=== PATIENT | female | born 1985 | race Hispanic/Latino ===

== ENCOUNTER 2017-06-30 07:41 | Day surgery (SDC) | payer MEDICARE, MEDICAID ==
[~2017-06-30] VITALS: Ht 157.5 cm; Wt 102.1 kg
[~2017-06-30 07:41] MED LIST: AMOXICILLIN; AMOXICILLIN500 M1 OR; AMOXICILLIN500 MG OR; AMOXICILLIN500 MG PO; ANAPROX DS550 MG OR; ANTIVERT OR; ATIVAN0.5 MG PO; BACTRIM DS1 TAB OR; CEPHALEXIN500 M1 PO; CEPHALEXIN500 MG OR; CIPRO500 MG OR; CIPRO500 MG PO; CIPROFLOXACN0.3 % OP; CLARINEX5 MG OR; CLONAZEPAM0.5 MG PO; DARVOCET N-100100 - OR; FLAGYL500 MG OR; FLEXERIL OR; FLEXERIL10 MG PO; FLONASE SPRAY50 MCG; GABAPENTIN300 MG PO; INVANZ1 GM IJ; KEFLEX500 MG OR; LORTAB 5 OR; LORTAB 7.57.5 MG PO; LORTAB5 PO; MEDDOSEPAK OR; MELATONIN3 MG PO; MELOXICAM7.5 MG PO; NAPROSYN500 MG OR; NAPROSYN500 MG PO; NO HOME MEDS; OMEPRAZOLE20 M1 PO; PEPCID20 MG PO; PERCOCET 5/325M1 TAB OR; PERCOCET1 TA2 PO; PHENTERMINE30 MG OR; PREDNISONE5 MG PO; PREVPAC PO; PRILOSEC20 MG PO; PROMETHAZINE25 M1 RE; PROVENTIL HFA IN; PROZAC10 MG PO; PROZAC20 MG PO; REGLAN10 MG OR; ROBITUSSIN AC10 ML PO; SENOKOT S1 TAB OR; TRAMADOL HCL50 MG OR; TRAZODONE50 MG PO; ULTRAM50 M1 OR; ULTRAM50 M1 PO; ULTRAM50 MG OR; UNKNOWN MEDS; VANCOMYCIN HCL1 G1 IV; VENTOLIN HFA IN; ZITHROMAX250 MG PO; ZOFRAN ODT4 MG OR; ZOFRAN ODT4 MG SL; [UNRECOGNIZED DRUG - OTHER]; [UNRECOGNIZED DRUG - REMARK]; [UNRECOGNIZED DRUG - REMARK]
[2017-06-30] MEDS ORDERED: EFFEXOR37.5 MG PO (08:46)
[2017-06-30] MEDS ORDERED: EFFEXOR XR75 MG PO (08:46)
[2017-06-30] MEDS ORDERED: AMBIEN5 MG PO (08:46)
[2017-06-30] MEDS ORDERED: RESTORIL7.5 MG PO (08:46)
[2017-06-30] MEDS ORDERED: SLEEPING PILL (08:47)
[2017-06-30] MEDS ORDERED: PERCOCET 5/325M1 TAB PO (12:18)
[2017-06-30 14:00] VITALS: BP 138/79
== END 2017-06-30 13:45 | disposition home or self-care (01) ==
LOC: ORM 07:41
PROVIDERS: ATTEND Surgery
PROC: 0DBQXZZ Excision of Anus, External Approach (ICD-10-PCS; principal; 2017-06-30)
DX: K60.2 Anal fissure, unspecified (principal); F32.9 Major depressive disorder, single episode, unspecified; F41.9 Anxiety disorder, unspecified; K64.4 Residual hemorrhoidal skin tags; Z80.0 Family history of malignant neoplasm of digestive organs

== ENCOUNTER 2017-11-17 12:05 | Emergency (ER) | payer MEDICARE, MEDICAID ==
[~2017-11-17] VITALS: Ht 157.5 cm; Wt 91.6 kg
[~2017-11-17 12:05] MED LIST changes: +AMBIEN5 MG PO; +EFFEXOR XR75 MG PO; +EFFEXOR37.5 MG PO; +PERCOCET 5/325M1 TAB PO; +RESTORIL7.5 MG PO; +SLEEPING PILL
[2017-11-17] MEDS ORDERED: AMOXICILLIN500 M2 (12:23)
[2017-11-17] MEDS ORDERED: PREDNISONE50 MG PO (12:47)
[2017-11-17] MEDS ORDERED: CLARITIN-D1 TA2 PO (12:47)
[2017-11-17 13:03] VITALS: BP 132/81
== END 2017-11-17 13:05 | disposition home or self-care (01) ==
LOC: ED 12:05
DX: T78.40XA Allergy, unspecified, initial encounter (principal); J45.909 Unspecified asthma, uncomplicated; X58.XXXA Exposure to other specified factors, initial encounter; Z98.84 Bariatric surgery status

== ENCOUNTER 2021-08-21 00:12 | Emergency (ER) | payer MEDICARE, MEDICAID ==
[~2021-08-21] VITALS: Ht 157.5 cm; Wt 108.0 kg
[~2021-08-21 00:12] MED LIST changes: +AMBIEN10 MG PO; +AMOXICILLIN500 M2; +CLARITIN-D1 TA2 PO; +EFFEXOR XR150 MG PO; +GABAPENTIN400 M2 PO; +GLIPIZIDE ER5 M1 PO; +HYDROCODONE/ACE1 TAB PO; +IRON (FERROUS S50 MG PO; +MEDDOSEPAK PO; +METFORMIN500 M2 PO; +NORCO1 TA2 PO; +OMEPRAZOLE20 M2 PO; +PREDNISONE50 MG PO; +RESTORIL15 MG PO; +TEMAZEPAM15 MG PO; +VIT A & D PO; +XANAX1 MG PO
[2021-08-21 00:56] LABS: HEMATOCRIT 43.2 % (37.0-47.0); HEMOGLOBIN 13.8 g/dl (12.0-16.0); IMMATURE GRANULOCYTES 0.5 % (0.0-5.0); MEAN CELL VOLUME 95.2 fL CALC (80.0-100.0); MEAN CORPUSCULAR HGB 30.4 pG CALC (26.0-32.0); MEAN CORPUSCULAR HGB CONC 31.9 g/dL CAL (32.0-36.0); NEUT# 5.77 thou/uL (2.00-7.15); RED BLOOD COUNT 4.54 mill/uL (4.20-5.60); RED CELL DISTRI WIDTH 12.7 % (11.5-15.5)
[2021-08-21 01:11] LABS: ALBUMIN 4.2 g/dL (3.2-5.0); ALKALINE PHOSPHATASE 75 u/l (38-126); ANION GAP 11 (6-22 (CALC)); BILIRUBIN, TOTAL 0.5 mg/dL (0.0-1.4); BUN 16 mg/dL (7-17); BUN/CREATININE RATIO 17 (12-20 (CALC)); CARBON DIOXIDE 29 mmol/l (22-30); CHLORIDE 104 mmol/l (95-108); CREATININE 0.9 mg/dL (0.5-1.0); GFR > 60 ML/MIN (>=60 (CALC)); GFR FOR AFR.AMER. > 60 ML/MIN (>=60 (CALC)); SGOT/AST 19 u/l (14-36); SODIUM 141 mmol/l (137-146); TOTAL PROTEIN 7.3 g/dL (6.3-8.2)
[2021-08-21 01:19] LABS: HCG SERUM/URINE (NEG/POS) NEGATIVE (NEGATIVE)
[2021-08-21] MEDS ORDERED: PROMETHAZINE HY25 M1 PO (02:38)
[2021-08-21] MEDS ORDERED: PREDNISONE50 MG PO (02:38)
[2021-08-21 02:47] VITALS: BP 174/93
== END 2021-08-21 02:53 | disposition home or self-care (01) ==
LOC: ED 00:12
PROVIDERS: Family Medicine
DX: B34.9 Viral infection, unspecified (principal); T78.40XA Allergy, unspecified, initial encounter; J45.909 Unspecified asthma, uncomplicated; F41.9 Anxiety disorder, unspecified; F32.A Depression, unspecified; X58.XXXA Exposure to other specified factors, initial encounter; Z20.822 Contact with and (suspected) exposure to COVID-19

== ENCOUNTER 2022-01-28 01:06 | Emergency (ER) | payer MEDICARE, MEDICAID ==
[~2022-01-28] VITALS: Ht 157.5 cm; Wt 90.0 kg
[~2022-01-28 01:06] MED LIST changes: +PROMETHAZINE HY25 M1 PO
[2022-01-28 01:50] VITALS: BP 134/86
[2022-01-28 02:01] VITALS: BP 134/78
[2022-01-28 02:47] LABS: HEMATOCRIT 44.5 % (37.0-47.0); IMMATURE GRANULOCYTES 0.2 % (0.0-5.0); MEAN CELL VOLUME 96.1 fL CALC (80.0-100.0); MEAN CORPUSCULAR HGB 30.2 pG CALC (26.0-32.0); MEAN CORPUSCULAR HGB CONC 31.5 g/dL CAL (32.0-36.0); NEUT# 6.92 thou/uL (2.00-7.15); RED BLOOD COUNT 4.63 mill/uL (4.20-5.60); URINE BILIRUBIN - DIPSTICK NEGATIVE (NEGATIVE); URINE BLOOD DIPSTICK NEGATIVE (NEGATIVE); URINE COLOR YELLOW; URINE GLUCOSE - DIPSTICK NEGATIVE (NEGATIVE); URINE KETONE NEGATIVE (NEGATIVE); URINE LEUK ESTERASE NEGATIVE (NEGATIVE); URINE PH 5.5 (4.5-8.0); URINE PROTEIN - DIPSTICK NEGATIVE (NEG-TRACE); URINE SPECIFIC GRAVITY >=1.030; URINE UROBILINOGEN - DIPSTICK 0.2 E.U./dL (0.2)
[2022-01-28 02:50] LABS: URINE NITRITE - DIPSTICK NEGATIVE (Negative)
[2022-01-28 02:59] LABS: ALBUMIN 4.4 g/dL (3.2-5.0); ALKALINE PHOSPHATASE 66 u/l (38-126); AMYLASE 91 u/l (30-110); ANION GAP 13 (6-22 (CALC)); BILIRUBIN, TOTAL 0.4 mg/dL (0.0-1.4); BUN 21 mg/dL (7-17); BUN/CREATININE RATIO 24 (12-20 (CALC)); CARBON DIOXIDE 26 mmol/l (22-30); CHLORIDE 106 mmol/l (95-108); CREATININE 0.9 mg/dL (0.5-1.0); GFR > 60 ML/MIN (>=60 (CALC)); GFR FOR AFR.AMER. > 60 ML/MIN (>=60 (CALC)); LIPASE 284 u/l (23-300); SGOT/AST 24 u/l (14-36); SODIUM 140 mmol/l (137-146); TOTAL PROTEIN 7.6 g/dL (6.3-8.2)
[2022-01-28 03:01] VITALS: BP 142/102
[2022-01-28 05:02] VITALS: BP 123/77
[2022-01-28 05:45] VITALS: BP 123/77
== END 2022-01-28 05:55 | disposition home or self-care (01) ==
LOC: ED 01:06
PROVIDERS: Emergency Medicine
DX: R10.12 Left upper quadrant pain (principal); R10.32 Left lower quadrant pain; R10.33 Periumbilical pain; K80.20 Calculus of gallbladder without cholecystitis without obstruction; K21.9 Gastro-esophageal reflux disease without esophagitis; J45.909 Unspecified asthma, uncomplicated; F41.9 Anxiety disorder, unspecified; F32.9 Major depressive disorder, single episode, unspecified; Z98.84 Bariatric surgery status

== ENCOUNTER 2022-01-30 01:05 | Emergency (ER) | payer MEDICARE, MEDICAID ==
[2022-01-30] VITALS (7 sets, daily range): BP systolic 128–141; BP diastolic 79–96
[~2022-01-30] VITALS: Ht 157.5 cm; Wt 91.0 kg
[2022-01-30 02:25] LABS: URINE BILIRUBIN - DIPSTICK NEGATIVE (NEGATIVE); URINE BLOOD DIPSTICK NEGATIVE (NEGATIVE); URINE COLOR YELLOW; URINE GLUCOSE - DIPSTICK NEGATIVE (NEGATIVE); URINE KETONE NEGATIVE (NEGATIVE); URINE LEUK ESTERASE NEGATIVE (NEGATIVE); URINE PH 5.5 (4.5-8.0); URINE PROTEIN - DIPSTICK NEGATIVE (NEG-TRACE); URINE SPECIFIC GRAVITY >=1.030; URINE UROBILINOGEN - DIPSTICK 0.2 E.U./dL (0.2)
[2022-01-30 02:25] LABS: HEMATOCRIT 43.4 % (37.0-47.0); HEMOGLOBIN 13.5 g/dl (12.0-16.0); IMMATURE GRANULOCYTES 0.2 % (0.0-5.0); MEAN CELL VOLUME 97.5 fL CALC (80.0-100.0); MEAN CORPUSCULAR HGB 30.3 pG CALC (26.0-32.0); MEAN CORPUSCULAR HGB CONC 31.1 g/dL CAL (32.0-36.0); NEUT# 7.29 thou/uL (2.00-7.15); RED BLOOD COUNT 4.45 mill/uL (4.20-5.60); RED CELL DISTRI WIDTH 12.7 % (11.5-15.5)
[2022-01-30 02:28] LABS: URINE NITRITE - DIPSTICK NEGATIVE (Negative)
[2022-01-30 02:50] LABS: ALBUMIN 4.3 g/dL (3.2-5.0); ALKALINE PHOSPHATASE 60 u/l (38-126); ANION GAP 10 (6-22 (CALC)); BILIRUBIN, TOTAL 0.4 mg/dL (0.0-1.4); BUN 24 mg/dL (7-17); BUN/CREATININE RATIO 30 (12-20 (CALC)); CARBON DIOXIDE 26 mmol/l (22-30); CHLORIDE 109 mmol/l (95-108); CREATININE 0.8 mg/dL (0.5-1.0); GFR > 60 ML/MIN (>=60 (CALC)); GFR FOR AFR.AMER. > 60 ML/MIN (>=60 (CALC)); LIPASE 227 u/l (23-300); POTASSIUM 3.7 mmol/l (3.5-5.1); SGOT/AST 33 u/l (14-36); SODIUM 141 mmol/l (137-146); TOTAL PROTEIN 7.2 g/dL (6.3-8.2)
[2022-01-30] MEDS ORDERED: LORTAB 1010 MG PO (03:05)
[2022-01-30] MEDS ORDERED: ONDANSETRON4 MG PO (03:05)
[2022-01-30 03:40] LABS: AMYLASE 101 u/l (30-110)
== END 2022-01-30 03:21 | disposition home or self-care (01) ==
LOC: ED 01:05
PROVIDERS: Emergency Medicine
DX: R10.33 Periumbilical pain (principal); J45.909 Unspecified asthma, uncomplicated; F41.9 Anxiety disorder, unspecified; F32.A Depression, unspecified; Z88.5 Allergy status to narcotic agent
CPT/HCPCS: S0164

== ENCOUNTER 2022-02-17 09:42 | Day surgery (SDC) | payer MEDICARE, MEDICAID ==
[~2022-02-17] VITALS: Ht 157.5 cm; Wt 90.7 kg
[~2022-02-17 09:42] MED LIST changes: +LORTAB 1010 MG PO; +OMEPRAZOLE DR40 MG PO; +ONDANSETRON4 MG PO; +PERCOCET 10/31 COMBO PO; +PERCOCET 5/321 COMBO PO; +VENLAFAXINE75 M1 PO
[2022-02-17] MEDS ORDERED: LORTAB5 PO (12:03)
[2022-02-17 13:29] VITALS: BP 119/70
[2022-02-18] MEDS ORDERED: PERCOCET1 TA4 PO (15:31)
== END 2022-02-17 13:45 | disposition home or self-care (01) ==
LOC: ORM 09:42
PROVIDERS: ATTEND Surgery
PROC: 0FT44ZZ Resection of Gallbladder, Percutaneous Endoscopic Approach (ICD-10-PCS; principal; 2022-02-17)
DX: K80.10 Calculus of gallbladder with chronic cholecystitis without obstruction (principal); K21.9 Gastro-esophageal reflux disease without esophagitis
CPT/HCPCS: J0131; J1610; Q9967

== ENCOUNTER 2022-04-04 13:55 | Emergency (ER) | payer MEDICARE, MEDICAID ==
[~2022-04-04] VITALS: Ht 157.5 cm; Wt 100.0 kg
[~2022-04-04 13:55] MED LIST changes: +PERCOCET1 TA4 PO
[2022-04-04 14:04] VITALS: BP 124/72
[2022-04-04] MEDS ORDERED: HYDROCO/APAP1 TA9 PO (17:54)
[2022-04-04 17:59] VITALS: BP 124/72
== END 2022-04-04 18:23 | disposition home or self-care (01) ==
LOC: ED 13:55
DX: M54.50 Low back pain, unspecified (principal); J45.909 Unspecified asthma, uncomplicated; F41.9 Anxiety disorder, unspecified; F32.A Depression, unspecified

== ENCOUNTER 2022-05-24 06:38 | Emergency (ER) | payer MEDICARE, MEDICAID ==
[2022-05-24] VITALS (8 sets, daily range): BP systolic 115–131; BP diastolic 65–85
[~2022-05-24] VITALS: Ht 157.5 cm; Wt 90.2 kg
[~2022-05-24 06:38] MED LIST changes: +HYDROCO/APAP1 TA9 PO
== END 2022-05-24 09:28 | disposition home or self-care (01) ==
LOC: ED 06:38
DX: M25.572 Pain in left ankle and joints of left foot (principal); M25.571 Pain in right ankle and joints of right foot; S90.822A Blister (nonthermal), left foot, initial encounter; S90.821A Blister (nonthermal), right foot, initial encounter; E66.9 Obesity, unspecified; J45.909 Unspecified asthma, uncomplicated; F41.9 Anxiety disorder, unspecified; F32.A Depression, unspecified; X50.0XXA Overexertion from strenuous movement or load, initial encounter; X58.XXXA Exposure to other specified factors, initial encounter

== ENCOUNTER 2022-11-16 14:08 | Emergency (ER) | payer MEDICARE, MEDICAID ==
[~2022-11-16] VITALS: Ht 157.5 cm; Wt 81.6 kg
[2022-11-16 16:25] VITALS: BP 148/94
[2022-11-16 16:30] VITALS: BP 158/109
[2022-11-16 16:45] VITALS: BP 143/99
[2022-11-16] MEDS ORDERED: KEFLEX500 MG PO (16:50)
[2022-11-16] MEDS ORDERED: PREDNISONE10 MG PO (16:50)
[2022-11-16] MEDS ORDERED: ZYRTEC10 MG PO (16:50)
[2022-11-16 17:00] VITALS: BP 139/92
[2022-11-16 17:15] VITALS: BP 134/92
[2022-11-16 17:29] VITALS: BP 139/92
== END 2022-11-16 17:25 | disposition home or self-care (01) ==
LOC: ED 14:08
DX: L25.9 Unspecified contact dermatitis, unspecified cause (principal); K21.9 Gastro-esophageal reflux disease without esophagitis; F41.9 Anxiety disorder, unspecified; J45.909 Unspecified asthma, uncomplicated; F32.A Depression, unspecified

== ENCOUNTER 2022-12-31 18:57 | Emergency (ER) | payer MEDICARE, MEDICAID ==
[~2022-12-31] VITALS: Ht 157.5 cm; Wt 230.0 kg
[2022-12-31] VITALS (17 sets, daily range): BP systolic 107–139; BP diastolic 70–97
[~2022-12-31 18:57] MED LIST changes: +KEFLEX500 MG PO; +PREDNISONE10 MG PO; +ZYRTEC10 MG PO
[2022-12-31 21:03] LABS: BASO% 0.8 % (0-3); EOS% 1.5 % (0-8); IMMATURE GRANULOCYTES 0.2 % (0.0-5.0); LYMPH% 23.2 % (15-41); MEAN CORPUSCULAR HGB 27.5 pG CALC (26.0-32.0); MEAN CORPUSCULAR HGB CONC 30.4 g/dL CAL (32.0-36.0); MONO% 9.1 % (2-13); NEUT# 4.22 thou/uL (2.00-7.15); NEUT% 65.2 % (42-76); RED BLOOD COUNT 4.07 mill/uL (4.20-5.60)
[2022-12-31 21:07] LABS: HEMATOCRIT 36.9 % (37.0-47.0); HEMOGLOBIN 11.2 g/dl (12.0-16.0); MEAN CELL VOLUME 90.7 fL CALC (80.0-100.0)
[2022-12-31 21:08] LABS: URINE BILIRUBIN - DIPSTICK NEGATIVE (NEGATIVE); URINE BLOOD DIPSTICK NEGATIVE (NEGATIVE); URINE COLOR YELLOW; URINE GLUCOSE - DIPSTICK NEGATIVE (NEGATIVE); URINE KETONE NEGATIVE (NEGATIVE); URINE LEUK ESTERASE NEGATIVE (NEGATIVE); URINE PH 6.5 (4.5-8.0); URINE PROTEIN - DIPSTICK NEGATIVE (NEG-TRACE); URINE UROBILINOGEN - DIPSTICK 0.2 E.U./dL (0.2)
[2022-12-31 21:10] LABS: URINE NITRITE - DIPSTICK NEGATIVE (Negative)
[2022-12-31 21:12] LABS: HCG SERUM/URINE (NEG/POS) NEGATIVE (NEGATIVE)
[2022-12-31 21:16] LABS: ALBUMIN 3.8 g/dL (3.2-5.0); ALKALINE PHOSPHATASE 72 u/l (38-126); ANION GAP 8 (6-22 (CALC)); BUN 12 mg/dL (7-17); BUN/CREATININE RATIO 15 (12-20 (CALC)); CARBON DIOXIDE 26 mmol/l (22-30); CHLORIDE 108 mmol/l (95-108); CREATININE 0.8 mg/dL (0.5-1.0); ETHYL ALCOHOL 0 mg/dl (0-30); GFR FOR AFR.AMER. > 60 ML/MIN (>=60 (CALC)); GFR OTHER RACES > 60 ML/MIN (>=60 (CALC)); POTASSIUM 3.8 mmol/l (3.5-5.1); SGOT/AST 23 u/l (14-36); SODIUM 137 mmol/l (137-146); TOTAL PROTEIN 6.7 g/dL (6.3-8.2)
[2022-12-31 21:17] LABS: BILIRUBIN, TOTAL 0.1 mg/dL (0.02-1.3)
== END 2023-01-01 | disposition home or self-care (01) ==
LOC: ED 18:57
PROVIDERS: Emergency Medicine
DX: R07.89 Other chest pain (principal); R55 Syncope and collapse; K08.89 Other specified disorders of teeth and supporting structures; R10.32 Left lower quadrant pain; J45.909 Unspecified asthma, uncomplicated; F41.9 Anxiety disorder, unspecified; F32.A Depression, unspecified; F17.200 Nicotine dependence, unspecified, uncomplicated; Z20.822 Contact with and (suspected) exposure to COVID-19

== ENCOUNTER 2023-01-14 13:46 | Emergency (ER) | payer MEDICARE, MEDICAID ==
[2023-01-14] VITALS (10 sets, daily range): BP systolic 100–122; BP diastolic 56–85
[~2023-01-14] VITALS: Ht 157.5 cm; Wt 99.8 kg
[2023-01-14 14:19] LABS: BASO% 0.6 % (0-3); EOS% 1.7 % (0-8); HEMATOCRIT 41.2 % (37.0-47.0); HEMOGLOBIN 12.6 g/dl (12.0-16.0); IMMATURE GRANULOCYTES 0.2 % (0.0-5.0); LYMPH% 20.3 % (15-41); MEAN CELL VOLUME 90.5 fL CALC (80.0-100.0); MEAN CORPUSCULAR HGB 27.7 pG CALC (26.0-32.0); MEAN CORPUSCULAR HGB CONC 30.6 g/dL CAL (32.0-36.0); MONO% 8.8 % (2-13); NEUT# 6.43 thou/uL (2.00-7.15); NEUT% 68.4 % (42-76); RED BLOOD COUNT 4.55 mill/uL (4.20-5.60); RED CELL DISTRI WIDTH 14.3 % (11.5-15.5)
[2023-01-14 14:27] LABS: ALBUMIN 4.7 g/dL (3.2-5.0); ALKALINE PHOSPHATASE 80 u/l (38-126); ANION GAP 14 (6-22 (CALC)); BILIRUBIN, TOTAL 0.4 mg/dL (0.02-1.3); BUN 14 mg/dL (7-17); BUN/CREATININE RATIO 16 (12-20 (CALC)); CARBON DIOXIDE 24 mmol/l (22-30); CHLORIDE 104 mmol/l (95-108); CREATININE 0.9 mg/dL (0.5-1.0); GFR FOR AFR.AMER. > 60 ML/MIN (>=60 (CALC)); GFR OTHER RACES > 60 ML/MIN (>=60 (CALC)); POTASSIUM 4.3 mmol/l (3.5-5.1); SGOT/AST 32 u/l (14-36); SODIUM 138 mmol/l (137-146); TOTAL PROTEIN 7.8 g/dL (6.3-8.2)
[2023-01-14 14:41] LABS: URINE BLOOD DIPSTICK NEGATIVE (NEGATIVE); URINE COLOR YELLOW; URINE GLUCOSE - DIPSTICK NEGATIVE (NEGATIVE); URINE KETONE NEGATIVE (NEGATIVE); URINE LEUK ESTERASE NEGATIVE (NEGATIVE); URINE PROTEIN - DIPSTICK NEGATIVE (NEG-TRACE); URINE SPECIFIC GRAVITY >=1.030; URINE UROBILINOGEN - DIPSTICK 0.2 E.U./dL (0.2)
[2023-01-14 14:45] LABS: URINE BILIRUBIN - DIPSTICK SMALL (NEGATIVE)
[2023-01-14 14:46] LABS: URINE NITRITE - DIPSTICK NEGATIVE (Negative)
[2023-01-14] MEDS ORDERED: LORTAB 1010 MG PO (19:51)
== END 2023-01-14 20:32 | disposition home or self-care (01) ==
LOC: ED 13:46
PROVIDERS: Family Medicine
DX: N83.202 Unspecified ovarian cyst, left side (principal); J45.909 Unspecified asthma, uncomplicated; F41.9 Anxiety disorder, unspecified; F32.A Depression, unspecified
CPT/HCPCS: Q9967

== ENCOUNTER 2023-01-28 14:32 | Emergency (ER) | payer MEDICARE, MEDICAID ==
[~2023-01-28] VITALS: Ht 157.5 cm; Wt 99.7 kg
[2023-01-28] VITALS (23 sets, daily range): BP systolic 108–159; BP diastolic 75–98
[2023-01-28 17:48] LABS: BASO% 0.5 % (0-3); EOS% 1.8 % (0-8); HEMATOCRIT 39.5 % (37.0-47.0); HEMOGLOBIN 12.2 g/dl (12.0-16.0); IMMATURE GRANULOCYTES 0.1 % (0.0-5.0); LYMPH% 19.3 % (15-41); MEAN CELL VOLUME 90.2 fL CALC (80.0-100.0); MEAN CORPUSCULAR HGB 27.9 pG CALC (26.0-32.0); MEAN CORPUSCULAR HGB CONC 30.9 g/dL CAL (32.0-36.0); MONO% 8.3 % (2-13); NEUT# 7.08 thou/uL (2.00-7.15); RED BLOOD COUNT 4.38 mill/uL (4.20-5.60); RED CELL DISTRI WIDTH 13.9 % (11.5-15.5)
[2023-01-28 17:57] LABS: ALBUMIN 4.4 g/dL (3.2-5.0); ALKALINE PHOSPHATASE 79 u/l (38-126); ANION GAP 15 (6-22 (CALC)); BILIRUBIN, TOTAL 0.3 mg/dL (0.02-1.3); BUN 18 mg/dL (7-17); BUN/CREATININE RATIO 22 (12-20 (CALC)); CARBON DIOXIDE 24 mmol/l (22-30); CHLORIDE 104 mmol/l (95-108); CREATININE 0.8 mg/dL (0.5-1.0); GFR FOR AFR.AMER. > 60 ML/MIN (>=60 (CALC)); GFR OTHER RACES > 60 ML/MIN (>=60 (CALC)); POTASSIUM 3.8 mmol/l (3.5-5.1); SGOT/AST 28 u/l (14-36); SODIUM 140 mmol/l (137-146); TOTAL PROTEIN 7.6 g/dL (6.3-8.2)
[2023-01-28 19:22] LABS: URINE BILIRUBIN - DIPSTICK NEGATIVE (NEGATIVE); URINE BLOOD DIPSTICK NEGATIVE (NEGATIVE); URINE COLOR YELLOW; URINE GLUCOSE - DIPSTICK NEGATIVE (NEGATIVE); URINE KETONE NEGATIVE (NEGATIVE); URINE LEUK ESTERASE NEGATIVE (NEGATIVE); URINE PH 5.5 (4.5-8.0); URINE PROTEIN - DIPSTICK NEGATIVE (NEG-TRACE); URINE SPECIFIC GRAVITY >=1.030; URINE UROBILINOGEN - DIPSTICK 0.2 E.U./dL (0.2)
[2023-01-28 19:23] LABS: URINE NITRITE - DIPSTICK NEGATIVE (Negative)
== END 2023-01-28 21:33 | disposition home or self-care (01) ==
LOC: ED 14:32
PROVIDERS: Family Medicine
DX: R10.31 Right lower quadrant pain (principal); R10.32 Left lower quadrant pain; N83.202 Unspecified ovarian cyst, left side; J45.909 Unspecified asthma, uncomplicated; F41.9 Anxiety disorder, unspecified; F32.A Depression, unspecified; F17.200 Nicotine dependence, unspecified, uncomplicated; Z98.84 Bariatric surgery status

== ENCOUNTER 2023-02-21 00:29 | Emergency (ER) | payer MEDICARE, MEDICAID ==
[2023-02-21] VITALS (11 sets, daily range): BP systolic 106–155; BP diastolic 65–100
[~2023-02-21] VITALS: Ht 157.5 cm; Wt 104.0 kg
[2023-02-21 01:13] LABS: BASO% 0.5 % (0-3); EOS% 1.8 % (0-8); HEMATOCRIT 39.9 % (37.0-47.0); HEMOGLOBIN 12.4 g/dl (12.0-16.0); IMMATURE GRANULOCYTES 0.8 % (0.0-5.0); LYMPH% 17.5 % (15-41); MEAN CELL VOLUME 88.9 fL CALC (80.0-100.0); MEAN CORPUSCULAR HGB 27.6 pG CALC (26.0-32.0); MEAN CORPUSCULAR HGB CONC 31.1 g/dL CAL (32.0-36.0); MONO% 8.5 % (2-13); NEUT# 7.85 thou/uL (2.00-7.15); NEUT% 70.9 % (42-76); RED BLOOD COUNT 4.49 mill/uL (4.20-5.60); RED CELL DISTRI WIDTH 13.9 % (11.5-15.5)
[2023-02-21 01:24] LABS: ALBUMIN 4.3 g/dL (3.2-5.0); ALKALINE PHOSPHATASE 83 u/l (38-126); ANION GAP 12 (6-22 (CALC)); BILIRUBIN, TOTAL 0.2 mg/dL (0.02-1.3); BUN 14 mg/dL (7-17); BUN/CREATININE RATIO 16 (12-20 (CALC)); CARBON DIOXIDE 21 mmol/l (22-30); CHLORIDE 112 mmol/l (95-108); CREATININE 0.9 mg/dL (0.5-1.0); GFR FOR AFR.AMER. > 60 ML/MIN (>=60 (CALC)); GFR OTHER RACES > 60 ML/MIN (>=60 (CALC)); LIPASE 96 u/l (23-300); POTASSIUM 3.4 mmol/l (3.5-5.1); SGOT/AST 40 u/l (14-36); SODIUM 142 mmol/l (137-146); TOTAL PROTEIN 7.5 g/dL (6.3-8.2)
[2023-02-21 02:43] LABS: URINE BILIRUBIN - DIPSTICK NEGATIVE (NEGATIVE); URINE BLOOD DIPSTICK NEGATIVE (NEGATIVE); URINE COLOR YELLOW; URINE GLUCOSE - DIPSTICK NEGATIVE (NEGATIVE); URINE KETONE NEGATIVE (NEGATIVE); URINE LEUK ESTERASE NEGATIVE (NEGATIVE); URINE PROTEIN - DIPSTICK NEGATIVE (NEG-TRACE); URINE UROBILINOGEN - DIPSTICK 0.2 E.U./dL (0.2)
[2023-02-21 02:44] LABS: URINE NITRITE - DIPSTICK NEGATIVE (Negative)
[2023-02-21] MEDS ORDERED: DICYCLOMINE10 MG PO (03:12)
[2023-02-21] MEDS ORDERED: PERCOGESI1 PO (03:12)
== END 2023-02-21 03:29 | disposition home or self-care (01) ==
LOC: ED 00:29
PROVIDERS: Family Medicine
DX: R10.32 Left lower quadrant pain (principal); J45.909 Unspecified asthma, uncomplicated; F41.9 Anxiety disorder, unspecified; F32.A Depression, unspecified
CPT/HCPCS: J0131; Q9967; S0164

== ENCOUNTER 2023-03-10 22:25 | Emergency (ER) | payer MEDICARE, MEDICAID ==
[~2023-03-10] VITALS: Ht 157.5 cm; Wt 104.5 kg
[~2023-03-10 22:25] MED LIST changes: +DICYCLOMINE10 MG PO; +PERCOGESI1 PO
[2023-03-10 22:56] VITALS: BP 122/81
[2023-03-10 23:01] VITALS: BP 117/77
[2023-03-10 23:15] VITALS: BP 109/80
[2023-03-10 23:32] VITALS: BP 118/79
[2023-03-10 23:46] VITALS: BP 107/76
[2023-03-10 23:59] LABS: BASO% 0.6 % (0-3); EOS% 1.7 % (0-8); HEMATOCRIT 38.2 % (37.0-47.0); HEMOGLOBIN 11.6 g/dl (12.0-16.0); IMMATURE GRANULOCYTES 0.1 % (0.0-5.0); LYMPH% 23.9 % (15-41); MEAN CELL VOLUME 90.7 fL CALC (80.0-100.0); MEAN CORPUSCULAR HGB 27.6 pG CALC (26.0-32.0); MEAN CORPUSCULAR HGB CONC 30.4 g/dL CAL (32.0-36.0); MONO% 10.5 % (2-13); NEUT# 5.23 thou/uL (2.00-7.15); NEUT% 63.2 % (42-76); RED BLOOD COUNT 4.21 mill/uL (4.20-5.60); RED CELL DISTRI WIDTH 13.7 % (11.5-15.5)
[2023-03-11] VITALS (22 sets, daily range): BP systolic 96–130; BP diastolic 60–84
[2023-03-11 00:17] LABS: ALKALINE PHOSPHATASE 72 u/l (38-126); ANION GAP 10 (6-22 (CALC)); BILIRUBIN, TOTAL 0.2 mg/dL (0.02-1.3); BUN 13 mg/dL (7-17); BUN/CREATININE RATIO 16 (12-20 (CALC)); CARBON DIOXIDE 26 mmol/l (22-30); CHLORIDE 107 mmol/l (95-108); CREATININE 0.8 mg/dL (0.5-1.0); GFR FOR AFR.AMER. > 60 ML/MIN (>=60 (CALC)); GFR OTHER RACES > 60 ML/MIN (>=60 (CALC)); POTASSIUM 4.1 mmol/l (3.5-5.1); SGOT/AST 20 u/l (14-36); SODIUM 139 mmol/l (137-146); TOTAL PROTEIN 6.9 g/dL (6.3-8.2)
== END 2023-03-11 06:02 | disposition home or self-care (01) ==
LOC: ED 22:25
PROVIDERS: Emergency Medicine
DX: R10.32 Left lower quadrant pain (principal); F41.9 Anxiety disorder, unspecified; F32.A Depression, unspecified

== ENCOUNTER 2023-07-09 10:53 | Emergency (ER) | payer MEDICARE, MEDICAID ==
[2023-07-09] VITALS (12 sets, daily range): BP systolic 100–147; BP diastolic 52–103
[~2023-07-09] VITALS: Ht 157.5 cm; Wt 104.3 kg
[2023-07-09 13:04] LABS: URINE BILIRUBIN - DIPSTICK Negative (NEGATIVE); URINE BLOOD DIPSTICK Negative (NEGATIVE); URINE GLUCOSE - DIPSTICK Negative (NEGATIVE); URINE KETONE Negative (NEGATIVE); URINE LEUK ESTERASE Negative (NEGATIVE); URINE NITRITE - DIPSTICK Negative (Negative); URINE PH 6.5 (4.5-8.0); URINE PROTEIN - DIPSTICK Negative (NEG-TRACE); URINE SPECIFIC GRAVITY 1.015; URINE UROBILINOGEN - DIPSTICK 0.2 E.U./dL (0.2)
[2023-07-09 13:07] LABS: URINE COLOR Yellow
[2023-07-09 13:38] LABS: BASO% 0.6 % (0-3); EOS% 2.4 % (0-8); HEMATOCRIT 39.3 % (37.0-47.0); IMMATURE GRANULOCYTES 0.1 % (0.0-5.0); LYMPH% 22.6 % (15-41); MEAN CELL VOLUME 85.8 fL CALC (80.0-100.0); MEAN CORPUSCULAR HGB 26.2 pG CALC (26.0-32.0); MEAN CORPUSCULAR HGB CONC 30.5 g/dL CAL (32.0-36.0); MONO% 8.9 % (2-13); NEUT# 5.2 thou/uL (2.00-7.15); NEUT% 65.4 % (42-76); RED BLOOD COUNT 4.58 mill/uL (4.20-5.60); RED CELL DISTRI WIDTH 15.2 % (11.5-15.5)
[2023-07-09 14:07] LABS: ALBUMIN 4.1 g/dL (3.2-5.0); ALKALINE PHOSPHATASE 83 u/l (38-126); ANION GAP 14 (6-22 (CALC)); BUN 16 mg/dL (7-17); BUN/CREATININE RATIO 20 (12-20 (CALC)); CARBON DIOXIDE 23 mmol/l (22-30); CHLORIDE 105 mmol/l (95-108); CREATININE 0.8 mg/dL (0.5-1.0); GFR FOR AFR.AMER. > 60 ML/MIN (>=60 (CALC)); GFR OTHER RACES > 60 ML/MIN (>=60 (CALC)); POTASSIUM 4.4 mmol/l (3.5-5.1); SODIUM 137 mmol/l (137-146)
[2023-07-09 14:19] LABS: BILIRUBIN, TOTAL 0.4 mg/dL (0.02-1.3); C-REACTIVE PROTEIN < 0.5 mg/dL (0-0.9); SGOT/AST 43 u/l (14-36)
[2023-07-09] MEDS ORDERED: PREDNISONE20 MG PO (15:59)
[2023-07-09] MEDS ORDERED: METHOCARBAMOL500 MG PO (15:59)
[2023-07-09] MEDS ORDERED: NAPROXEN500 MG PO (15:59)
[2023-07-09] MEDS ORDERED: NEURONTIN100 MG PO (16:03)
== END 2023-07-09 16:16 | disposition home or self-care (01) ==
LOC: ED 10:53
PROVIDERS: Nurse Practitioner
DX: M54.12 Radiculopathy, cervical region (principal); F41.9 Anxiety disorder, unspecified; F32.A Depression, unspecified; J45.909 Unspecified asthma, uncomplicated

== ENCOUNTER 2023-07-21 20:44 | Emergency (ER) | payer MEDICARE, MEDICAID ==
[~2023-07-21] VITALS: Ht 157.5 cm; Wt 78.0 kg
[~2023-07-21 20:44] MED LIST changes: +METHOCARBAMOL500 MG PO; +NAPROXEN500 MG PO; +NEURONTIN100 MG PO; +PREDNISONE20 MG PO
[2023-07-21 20:59] VITALS: BP 133/97
[2023-07-21] MEDS ORDERED: VOLTAREN - GENE75 MG PO (21:38)
[2023-07-21] MEDS ORDERED: DECADRON4 MG PO (21:38)
[2023-07-21] MEDS ORDERED: TYLENOL # 31 TA1 PO (21:39)
[2023-07-21 21:48] VITALS: BP 133/97
== END 2023-07-21 22:03 | disposition home or self-care (01) ==
LOC: ED 20:44
DX: M54.12 Radiculopathy, cervical region (principal); J45.909 Unspecified asthma, uncomplicated; F41.9 Anxiety disorder, unspecified; F32.A Depression, unspecified; F17.210 Nicotine dependence, cigarettes, uncomplicated